=== PATIENT | female | born 1960 | race Caucasian/White ===

== ENCOUNTER 2024-08-15 10:21 | Emergency (ER) | payer OTHER, SELFPAY ==
[2024-08-15] VITALS (13 sets, daily range): BP systolic 114–143; BP diastolic 75–119; BMI 23.4
[2024-08-15] MEDS: ADENOCARD 6 MG IV (10:49)
[2024-08-15] MEDS: CARDIZEM 20 MG IV (10:57)
--- NOTE | 2024-08-15 10:59 | ED.GENMED ---
History of Present Illness
<LUCIA Peoples Jr. Last Filed: 08/15/24 15:26>
General
Chief Complaint: Heart Rate Problem
Source: patient and spouse
Exam Limitations: none
Time Seen by Provider: 08/15/24 10:45
Nursing documentation reviewed up to this point in time: agreed with
History of Present Illness
History of Present Illness:
63-year-old female presenting to the emergency department today with concerns of palpitations over the past 3 hours. 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
to the ER. Denies any specific chest pain no recent medication changes only takes lisinopril at baseline. No caffeine use drug or alcohol abuse
Review of Systems
<LUCIA Peoples Jr. Last Filed: 08/15/24 15:26>
Review of Systems
Allergies reviewed?: Yes
All Other Systems: ROS reviewed and negative except as documented in HPI and ROS
Phy Exam
<LUCIA Peoples Jr. Last Filed: 08/15/24 15:26>
Physical Exam
Physical Exam:
GENERAL: Alert , in no apparent distress
EYE: pupils equal and reactive
NECK: Supple, no significant adenopathy.
ENT: o/p clr, mmm.
CARDIAC: Tachycardic regular
LUNGS: Clear breath sounds bilaterally, no acute respiratory distress, no wheezes/rales/rhonchi
ABDOMEN: Soft, without focal tenderness, no r/g, no cvat
NEUROLOGICAL: Alert and oriented, no focal neuro deficits
SKIN: Warm and dry, skin intact.
MUSCULOSKELETAL: No edema, well perfused.
PSYCH: Normal and appropriate interaction.
Course
<Abel Daniel Jr., PA-C - Last Filed: 08/15/24 15:26>
Orders/Labs/Results
Orders:
Orders
08/15/24 10:22
Electrocardiogram (*1) Urgent
Reason for Study: Bradycardia / Tachycardia
EKG- Treatment ONCE
08/15/24 10:44
Adenosine [Adenocard] 12 mg .ROUTE .STK-MED ONE
08/15/24 10:48
Electrocardiogram (*1) Urgent
Reason for Study: Tachycardia
EKG- Treatment ONCE
08/15/24 10:50
Adenosine [Adenocard] 6 mg IV NOW STA
08/15/24 10:51
Adenosine [Adenocard] 6 mg .ROUTE .STK-MED ONE
08/15/24 10:55
Adenosine [Adenocard] 12 mg IV NOW STA
Diltiazem 125 mg/125 ml Nss [Cardizem] 125 mg in 125 ml .ROUTE .STK-MED
Diltiazem HCl [Cardizem] 50 mg .ROUTE .STK-MED ONE
08/15/24 11:01
TSH Reflex To Free T4 Urgent
08/15/24 11:05
Diltiazem Extended Release [Cardizem Cd] 120 mg PO NOW STA
08/15/24 11:10
Diltiazem HCl [Cardizem] 20 mg IV NOW STA
08/15/24 11:26
EKG [Electrocardiogram (*1)] Urgent
Reason for Study: Shortness of Breath
Chest [CR Chest - 2 Views ] Urgent
Comment:
Reason For Exam: sob
08/15/24 11:27
EKG- Treatment ONCE
08/15/24 11:33
Complete Blood Count/With Diff Urgent
D-Dimer Urgent
08/15/24 12:20
Diltiazem [Cardizem] 30 mg PO NOW STA
08/15/24 12:29
Echo 2D MMode Color/Doppler Routine
Reason for Study: rapid atach/SVT
08/15/24 13:12
Basic Metabolic Panel Urgent
08/15/24 15:13
EKG [Electrocardiogram (*1)] Urgent
Reason for Study: Fatigue / Weakness
EKG- Treatment ONCE
Abnormal Lab Results
08/15/24 08/15/24
11:33 13:12
MCH 32.1 H pg
(27.0-31.0)
MPV 10.9 H fL
(7.4-10.4)
Absolute Lymphs (auto) 0.9 L 10^3/uL
(1.2-3.4)
Neutrophils % 77.1 H %
(42.2-75.2)
Lymphocytes % 16.2 L %
(20.5-51.1)
Chloride 111 H mmol/L
(98-107)
08/15/24 11:33
08/15/24 13:12
Vital Signs
Initial and Last Documented VS:
Initial Vital Signs
Temp Pulse Resp BP Pulse Ox
98.8 F 202 30 143/99 100
08/15/24 10:23 08/15/24 10:23 08/15/24 10:23 08/15/24 10:23 08/15/24 10:23
Last Documented Vital Signs
Temp Pulse Resp BP Pulse Ox
98.8 F 60 26 120/75 97
08/15/24 10:23 08/15/24 15:00 08/15/24 10:57 08/15/24 15:00 08/15/24 15:00
<Suze Pickett DO - Last Filed: 08/15/24 13:01>
Orders/Labs/Results
Orders:
Orders
08/15/24 10:22
Electrocardiogram (*1) Urgent
Reason for Study: Bradycardia / Tachycardia
EKG- Treatment ONCE
08/15/24 10:44
Adenosine [Adenocard] 12 mg .ROUTE .STK-MED ONE
08/15/24 10:48
Electrocardiogram (*1) Urgent
Reason for Study: Tachycardia
EKG- Treatment ONCE
08/15/24 10:50
Adenosine [Adenocard] 6 mg IV NOW STA
08/15/24 10:51
Adenosine [Adenocard] 6 mg .ROUTE .STK-MED ONE
08/15/24 10:55
Adenosine [Adenocard] 12 mg IV NOW STA
Diltiazem 125 mg/125 ml Nss [Cardizem] 125 mg in 125 ml .ROUTE .STK-MED
Diltiazem HCl [Cardizem] 50 mg .ROUTE .STK-MED ONE
08/15/24 11:01
TSH Reflex To Free T4 Urgent
08/15/24 11:05
Diltiazem Extended Release [Cardizem Cd] 120 mg PO NOW STA
08/15/24 11:10
Diltiazem HCl [Cardizem] 20 mg IV NOW STA
08/15/24 11:26
EKG [Electrocardiogram (*1)] Urgent
Reason for Study: Shortness of Breath
Chest [CR Chest - 2 Views ] Urgent
Comment:
Reason For Exam: sob
08/15/24 11:27
EKG- Treatment ONCE
08/15/24 11:33
Complete Blood Count/With Diff Urgent
D-Dimer Urgent
08/15/24 12:20
Diltiazem [Cardizem] 30 mg PO NOW STA
08/15/24 12:29
Echo 2D MMode Color/Doppler Routine
Reason for Study: rapid atach/SVT
08/15/24 13:12
Basic Metabolic Panel Urgent
08/15/24 15:13
EKG [Electrocardiogram (*1)] Urgent
Reason for Study: Fatigue / Weakness
EKG- Treatment ONCE
Abnormal Lab Results
08/15/24 08/15/24
11:33 13:12
MCH 32.1 H pg
(27.0-31.0)
MPV 10.9 H fL
(7.4-10.4)
Absolute Lymphs (auto) 0.9 L 10^3/uL
(1.2-3.4)
Neutrophils % 77.1 H %
(42.2-75.2)
Lymphocytes % 16.2 L %
(20.5-51.1)
Chloride 111 H mmol/L
(98-107)
08/15/24 11:33
08/15/24 13:12
Vital Signs
Initial and Last Documented VS:
Initial Vital Signs
Temp Pulse Resp BP Pulse Ox
98.8 F 202 30 143/99 100
08/15/24 10:23 08/15/24 10:23 08/15/24 10:23 08/15/24 10:23 08/15/24 10:23
Last Documented Vital Signs
Temp Pulse Resp BP Pulse Ox
98.8 F 60 26 120/75 97
08/15/24 10:23 08/15/24 15:00 08/15/24 10:57 08/15/24 15:00 08/15/24 15:00
<Abel Daniel Jr., PA-C - Last Filed: 08/15/24 15:26>
MDM/Problems Addressed
MDM/Problems Addressed:
63-year-old female presenting to the emergency department today with concerns of elevated heart rate over the past few hours. On arrival heart rate of about 200 narrow complex regular. Modified Valsalva attempted without success x 2. Given
adenosine 6 mg then 12 mg without success. Patient then was given Cardizem with significant improvement from 200-100. There was concern that this could be atrial flutter. Case was discussed with cardiology that agreed with send recommended have
patient get echo here started on anticoagulation as well as rate control medication. Patient was started on oral diltiazem.
<Abel Daniel Jr., PA-C - Last Filed: 08/15/24 15:26>
*Critical Care Note
Total Time (30-74mins, 75-104mins- exclusive of procedures): Not Applicable
comment:
Critical care statement: A total of 40 minutes of critical care time was provided for this patient. This includes management of unstable vital signs, evaluation of the patient at bedside, reviewing the patient's pertinent medical records, discussion
with consultants, review of old EKGs and review of pertinent medical records. This time with separate from time utilized to perform the aforementioned documented procedures
ED Attending Note
<Abel Daniel Jr., PA-C - Last Filed: 08/15/24 15:26>
-
Portions of this chart may have been created with voice recognition software.� Occasional wrong word or��sound alike� substitutions may have occurred due to the inherent limitations of voice recognition software.
<Suze Pickett DO - Last Filed: 08/15/24 13:01>
ED Attending Note
Patient seen and examined by attending physician: Yes
I performed the substantive portion of visit, reviewed & personally made and approve the management plan that is documented in note by myself or LATHA.: Yes
I performed a history and physical exam of patient and discussed management with resident, I reviewed resident's note and agree with documented findings and plan of care.: Yes
ED Attending Note:
63-year-old female without significant past medical history presenting for palpitations. Patient reports symptoms for the past several hours. 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
to her primary care doctor. At primary care office, had an EKG that showed elevated heart rate in the 200s. Patient reports that she has been having ongoing palpitations for the past several months with multiple episodes per month, however usually
resolve on their own. She has never had to come to the hospital. Denies associated chest pain. Does note some mild dyspnea. Vital signs significant for tachycardia.
On exam, patient is resting comfortably, no acute distress. Heart rate on EKG is 202, appears consistent with SVT. Confirmed by EKG. Initial attempt at adenosine. No response with 6 mg, repeated at 12 mg, minimal response. Rhythm in between
dosages. Consistent with possible a flutter. Dose of diltiazem administered with subsequent slowing of heart rate. Heart rate now in the 90s to low 100s. However, concern for possible a flutter. Will administer oral dose of diltiazem, continue
to closely monitor, screening laboratory analysis and discuss with cardiology.
13:00 - In discussion with cardiology, do suspect a flutter. Do not suspect that patient is a candidate for cardioversion. She notes that she has been having the symptoms on and off several times a month for the past several months. Cardiology
recommending anticoagulation, diltiazem, and will perform echo in the ER with plan for outpatient cardiology follow-up
Discharge Plan
Departure
Patient Disposition: Home (Routine Discharge)
Date of Disposition: 08/15/24
Time of Disposition: 15:22
Patient with high blood pressure during this ER visit?: No
Condition: Good
Covid-19: Not Applicable
Discharge Problem:
Atrial fib/flutter, transient
Instructions: Atrial flutter
Prescriptions:
New
diltiazem HCl 180 mg capsule,extended release 24hr
180 mg PO DAILY 14 Days Qty: 14 0RF
Eliquis 5 mg tablet
5 mg PO BID 30 Days Qty: 60 0RF
Referrals:
Rusty Ewing DO [Family Provider] -
Neri Franco DO [Active] - 08/20/24 8:20 am (You have an appointment with cardiology/electrophysiology in the [facility] office. Please call with questions)
Activity Restrictions/Additional Instructions:
You came to the emergency department today with concerns of elevated heart rate. This is likely something called atrial flutter. Please guide medications to avoid any further complications. And follow-up with the mangle press catcher on 08/20/2024 at 8:20
AM. Return for any worsening, new or concerning symptoms
Interventions
Interventions:
*Risk Screen - Suicide Last Done: 08/15/24 10:23
*General Assessment Last Done: 08/15/24 10:23
*Neglect/Abuse Screening Last Done: 08/15/24 10:23
*ED- Fall Risk Assessment Last Done: 08/15/24 10:37
*ED COVID-19 Vaccine History Last Done: 08/15/24 10:23
ED- Cardiac Assessment Last Done: 08/15/24 10:37
ED- Pulmonary Assessment Last Done: 08/15/24 10:37
Discharge Date and Time
Print Language: SWAZI
[2024-08-15] MEDS: CARDIZEM CD 120 MG PO (11:12)
[2024-08-15 11:55] LABS: TSH Reflex To Free T4 1.24 uIU/ml (0.47-4.68)
[2024-08-15] MEDS: ADENOCARD 12 MG IV (12:14)
[2024-08-15] MEDS: CARDIZEM 30 MG PO (12:26)
[2024-08-15 12:40] LABS: % Basophils 0.5 % (0-2); % Eosinophils 0.5 % (0-6); % Immature Granulocytes 0.2 % (0-0.5); % Lymphocytes 16.2 % (20.5-51.1); % Monocytes 5.5 % (1.7-9.3); % Neutrophils 77.1 % (42.2-75.2); Absolute Lymphocytes 0.9 10^3/uL (1.2-3.4); Absolute Monocytes 0.3 10^3/uL (0.1-0.6); Absolute Neutrophils 4.4 10^3/uL (1.4-6.5); Hemoglobin 14.6 g/dL (12.0-16.0); Mean Corp Hgb Conc. 34.8 g/dL (33.0-37.0); Mean Corpuscular Hgb 32.1 pg (27.0-31.0); Mean Corpuscular Volume 92.3 fL (81.0-99.0); Mean Platelet Volume 10.9 fL (7.4-10.4); Nucleated Red Blood Cells % 0 %; Platelet Count 268 10^3/uL (130-400); Red Blood Cell Count 4.55 10^6/uL (4.20-5.40); Red Cell Dist. Width 14.2 % (11.5-14.5); White Blood Cell Count 5.7 10^3/uL (4.8-10.8)
[2024-08-15 14:05] LABS: Blood Urea Nitrogen 17 mg/dl (7-17); Calcium 9.7 mg/dl (8.4-10.2); Carbon Dioxide 25 mmol/L (22-30); Chloride 111 mmol/L (98-107); Estimated Creatinine Clearance 69 ml/min; Glucose 90 mg/dl (70-99); Sodium 144 mmol/L (135-145); eGFR > 60.00
== END 2024-08-15 15:39 | disposition home or self-care (01) ==
LOC: EMR 10:21
PROVIDERS: Physician Assistant; EMERGENCY PHYSICIAN Student in an Organized Health Care Education/Training Program; FAMILY PHYSICIAN Family Medicine
DX: I48.91 Unspecified atrial fibrillation (principal); I48.92 Unspecified atrial flutter
CPT/HCPCS: 99291; 96374; 96375; 96376; 71046; 80048; 84443; 85025; 85379; 93005; 93306; J0153

== ENCOUNTER 2024-09-06 08:05 | Emergency (ER) | payer OTHER, SELFPAY ==
[2024-09-06] VITALS (16 sets, daily range): BP systolic 99–132; BP diastolic 72–102; BMI 24.2
--- NOTE | 2024-09-06 08:10 | ED.GENMED ---
History of Present Illness
General
Chief Complaint: Heart Rate Problem
Time Seen by Provider: 09/06/24 08:10
History of Present Illness
History of Present Illness:
TIME OF INITIAL ENCOUNTER: 8:15 AM
HPI: The patient was to have a stress test today but this did not occur because she was found to be in rapid atrial flutter. See review of old records below. The patient has periodically been having palpitations at nighttime. He is compliant with
taking diltiazem and states she has not missed any doses of Eliquis since started.
EXAM:
GENERAL: Well appearing in no distress
HEENT: Moist oral mucosa
CARDIOVASCULAR: No murmurs, tachycardic heart rate, slightly irregular rhythm, No chest wall tenderness
PULMONARY: No respiratory distress, breath sounds are clear and equal
ABDOMEN: Soft with no peritoneal signs, no tenderness
NEUROLOGIC: Excellent strength all extremities, no coordination deficits
PSYCHIATRIC: Appropriate mental status, normal insight and judgement
EXTREMITIES: Nontender, no edema, moves all extremities equally
SKIN: No rash, no lesions
NUMBER AND COMPLEXITY OF PROBLEMS ADDRESSED AT THE ENCOUNTER
� Chronic conditions affecting care: High blood pressure
� Acute Exacerbation and/or Progression of Chronic Illness: This is an acute problem
� Differential Diagnosis includes: High blood pressure, atrial flutter
AMOUNT AND/OR COMPLEXITY OF DATA TO BE REVIEWED AND ANALYZED
� I performed an independent evaluation of and my interpretation is:
EKG: Atrial flutter rate of 146 ST abnormality likely rate related
CT:
X-rays:
Laboratory Studies: CBC and chemistries unremarkable, troponin less than 0.012
Other:
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 At that time she arrived with a heart rate of around 200 which was narrow complex and
they tried Valsalva maneuvers and then 6 mg and then 12 mg of adenosine without success. She then improved after Cardizem was started. She was placed on Eliquis and diltiazem and discharged.
� Clinical information was obtained by an independent historian: I spoke to at bedside
� Prescriptions/Medications Considered but not given:
� Further testing considered but not performed:
RISK OF COMPLICATIONS AND/OR MORBIDITY OR MORTALITY OF PATIENT MANAGEMENT
� Social determinants of health affecting care: Lives at home
� Discussion with other providers: I spoke to Dr. Phoenix who agrees with cardioversion after we give her morning dose of Eliquis.
� Escalation of care including admission/observation vs risk of discharge considered: The patient was initially given 5 mg of IV metoprolol. The patient did have procedural sedation with electrical cardioversion. I did have to
shock her twice. After the second attempt, she remained in sinus rhythm. Of note, with 60 mg of propofol, she did seem rather sedate and had somewhat of a prolonged recovery however otherwise was uneventful and did not require BVM ventilation.
ANY OTHER UPDATES:
Phy Exam
Physical Exam
Physical Exam:
See HPI
Course
Orders/Labs/Results
Orders:
Orders
09/06/24 08:08
EKG [Electrocardiogram (*1)] Urgent
Reason for Study: Atrial Flutter
09/06/24 08:09
EKG- Treatment ONCE
09/06/24 08:27
CMP [Comprehensive Metabolic Panel] Urgent
Complete Blood Count/With Diff Urgent
PT/INR [Prothrombin Time] Urgent
PTT Urgent
Troponin I Urgent
09/06/24 08:28
Metoprolol [Lopressor] 5 mg IV NOW STA
09/06/24 08:45
Apixaban [Eliquis] 5 mg PO NOW STA
09/06/24 08:54
Propofol [Diprivan] 20 ml .ROUTE .STK-MED
09/06/24 09:12
Electrocardiogram (*1) Urgent
Reason for Study: Palpitations
EKG- Treatment ONCE
Abnormal Lab Results
09/06/24
08:27
MCH 32.4 H pg
(27.0-31.0)
MPV 10.6 H fL
(7.4-10.4)
APTT 36.1 H Sec
(23.4-35.0)
09/06/24 08:27
09/06/24 08:27
Vital Signs
Initial and Last Documented VS:
Initial Vital Signs
Temp Pulse Resp BP Pulse Ox
37.1 C 136 18 125/89 99
09/06/24 08:07 09/06/24 08:07 09/06/24 08:07 09/06/24 08:07 09/06/24 08:07
Last Documented Vital Signs
Temp Pulse Resp BP Pulse Ox
36.6 C 51 15 114/91 95
09/06/24 09:32 09/06/24 09:30 09/06/24 09:30 09/06/24 09:30 09/06/24 09:30
Procedures
Cardioversion
Indication:: Afib
Performed by:: Dr. Annette Myers
Synchronized?: Yes
Energy Used: 200 joules
Number of attempts: Two
Successful?: Yes
Complications: None
ASA Risk Score: Class II
Any reaction or bad outcome to prior sedation/anesthesia?: No history of a reaction
Sedation level to be attained: moderate
Chart and allergies reviewed: Yes
Patient reassessed prior to sedation: Yes
Time out completed at (validating right patient & procedure): 09:00
History of difficult intubation: No
Airway free of obstruction: Yes
Patient has a gag reflex: Yes
Patient is able to open mouth: Yes
Patient has no dentures: Yes
Patient has no loose teeth: Yes
Medication administered by Provider during Moderate Sedation: IV Propofol (mg)
Total dose administered: 60
Time drug administered: 09:00
Start Time: 09:00
Stop Time: 09:15
*Critical Care Note
Total Time (30-74mins, 75-104mins- exclusive of procedures): Not Applicable
ED Attending Note
-
Portions of this chart may have been created with voice recognition software.� Occasional wrong word or��sound alike� substitutions may have occurred due to the inherent limitations of voice recognition software.
Discharge Plan
Departure
Patient Disposition: Home (Routine Discharge)
Date of Disposition: 09/06/24
Time of Disposition: :28
Patient with high blood pressure during this ER visit?: Yes
Discharge Problem:
Atrial flutter with rapid ventricular response
Instructions: Atrial flutter
Prescriptions:
No Action
diltiazem HCl 180 mg capsule,extended release 24hr
180 mg PO DAILY 14 Days Qty: 14 0RF
Eliquis 5 mg tablet
5 mg PO BID 30 Days Qty: 60 0RF
Referrals:
Rusty Ewing, [Family Provider] -
Rika Lin CRNP [Specified Professional Personl] - 09/17/24 1:20 pm (You have a follow up visit with Dr. Franco's DOG DAYCARE PROVIDER, Rika, at the [facility] office. Please call with questions. )
Activity Restrictions/Additional Instructions:
No driving or making important decisions today as you did have procedural sedation earlier today. Basic blood work is normal. I spoke to Dr. Phoenix, Dr. Mccormick's associate. He wants you to continue your current medication. Since your heart rate
is slow right now, I recommend taking not taking any more diltiazem today. You can resume tomorrow. Follow-up with them as an outpatient. Be sure to continue your Eliquis.
Interventions
Interventions:
*Risk Screen - Suicide Last Done: 09/06/24 08:22
*General Assessment Last Done: 09/06/24 08:22
*Neglect/Abuse Screening Last Done: 09/06/24 08:22
*ED- Fall Risk Assessment Last Done: 09/06/24 08:22
*ED COVID-19 Vaccine History Last Done: 09/06/24 08:22
ED- Cardiac Assessment Last Done: 09/06/24 08:22
ED- Pulmonary Assessment Last Done: 09/06/24 08:22
Discharge Date and Time
Print Language: TELUGU
[2024-09-06] MEDS: LOPRESSOR 5 MG IV (08:30)
[2024-09-06 08:46] LABS: % Eosinophils 1.7 % (0-6); % Immature Granulocytes 0.4 % (0-0.5); % Lymphocytes 23.3 % (20.5-51.1); % Monocytes 8.9 % (1.7-9.3); % Neutrophils 64.7 % (42.2-75.2); Absolute Basophils 0.1 10^3/uL (0-0.2); Absolute Eosinophils 0.1 10^3/uL (0-0.7); Absolute Lymphocytes 1.2 10^3/uL (1.2-3.4); Absolute Monocytes 0.5 10^3/uL (0.1-0.6); Absolute Neutrophils 3.3 10^3/uL (1.4-6.5); Hematocrit 42.5 % (37.0-47.0); Hemoglobin 14.6 g/dL (12.0-16.0); Mean Corp Hgb Conc. 34.4 g/dL (33.0-37.0); Mean Corpuscular Hgb 32.4 pg (27.0-31.0); Mean Corpuscular Volume 94.4 fL (81.0-99.0); Mean Platelet Volume 10.6 fL (7.4-10.4); Nucleated Red Blood Cells % 0 %; Platelet Count 274 10^3/uL (130-400); Red Cell Dist. Width 13.9 % (11.5-14.5); White Blood Cell Count 5.2 10^3/uL (4.8-10.8)
[2024-09-06 08:48] LABS: ALT (SGPT) 18 U/L (0-35); AST (SGOT) 20 U/L (14-36); Albumin 4.5 g/dl (3.5-5.0); Alkaline Phosphatase 89 U/L (38-126); Blood Urea Nitrogen 17 mg/dl (7-17); Calcium 10.1 mg/dl (8.4-10.2); Carbon Dioxide 27 mmol/L (22-30); Chloride 105 mmol/L (98-107); Estimated Creatinine Clearance 61 ml/min; Glucose 97 mg/dl (70-99); INR 1.09; PT 14.4 Sec (11.4-14.6); Potassium 4.5 mmol/L (3.5-5.1); Sodium 142 mmol/L (135-145); Total Bilirubin 0.7 mg/dl (0.2-1.3); Total Protein 7.4 g/dl (6.3-8.2); eGFR > 60.00
[2024-09-06 08:49] LABS: APTT 36.1 Sec (23.4-35.0)
[2024-09-06] MEDS: ELIQUIS 5 MG PO (08:49)
[2024-09-06 08:59] LABS: Troponin I < 0.012 ng/ml
== END 2024-09-06 09:44 | disposition home or self-care (01) ==
LOC: EMR 08:05
PROVIDERS: EMERGENCY PHYSICIAN Emergency Medicine; FAMILY PHYSICIAN Family Medicine
DX: I48.92 Unspecified atrial flutter (principal); R03.0 Elevated blood-pressure reading, without diagnosis of hypertension
CPT/HCPCS: 92960; 99285; 96374; 99152; 80053; 84484; 85025; 85610; 85730; 93005

== ENCOUNTER 2024-10-23 08:30 | Day surgery (SDC) | payer OTHER, SELFPAY ==
[2024-10-07 12:43] VITALS: BMI 23.2
[2024-10-07 13:06] LABS: % Basophils 0.8 % (0-2); % Eosinophils 0.3 % (0-6); % Immature Granulocytes 0.2 % (0-0.5); % Lymphocytes 19.7 % (20.5-51.1); % Monocytes 7.2 % (1.7-9.3); % Neutrophils 71.8 % (42.2-75.2); Absolute Basophils 0.1 10^3/uL (0-0.2); Absolute Lymphocytes 1.2 10^3/uL (1.2-3.4); Absolute Monocytes 0.5 10^3/uL (0.1-0.6); Absolute Neutrophils 4.5 10^3/uL (1.4-6.5); Hemoglobin 14.7 g/dL (12.0-16.0); Mean Corpuscular Volume 94.4 fL (81.0-99.0); Mean Platelet Volume 10.2 fL (7.4-10.4); Nucleated Red Blood Cells % 0 %; Platelet Count 296 10^3/uL (130-400); Red Blood Cell Count 4.45 10^6/uL (4.20-5.40); White Blood Cell Count 6.3 10^3/uL (4.8-10.8)
--- NOTE | 2024-10-07 13:07 | HPS.HSE ---
Family Physician
-
Family Physician: Rusty Ewing
Chief Complaint
-
Paroxysmal atrial fibrillation.
History of Present Illness
The patient is a 63 year old female presenting today for paroxysmal atrial fibrillation with underlying atrial flutter. The patient reports symptoms such as minor chest discomfort, exertional shortness of breath, palpitations,
lightheadedness, and dizziness all likely secondary to her atrial arrhythmias. She previously underwent a cardioversion on September 06, 2024 for this diagnosis. Her most recent 2 week CAM monitor demonstrated a 12.8% atrial flutter burden with episodes
of one-to-one conduction and heart rates greater than 200 beats per minute. Also seen on monitoring was a 2.4% atrial fibrillation burden and 45 episodes of atrial tachycardia. She is on current pharmacological therapy with Diltiazem. She does
report compliance with Eliquis for oral anticoagulation due to a CHADS-VASc of 3. She notes that her symptoms associated with her arrhythmias greatly interfere with her activities of daily living and overall impact her quality of life. She is
interested in pursuing pulmonary vein isolation for more definitive arrhythmia management. She denies any current complaints today such as chest pain and shortness of breath at rest, nausea, vomiting, diarrhea, cough, sore throat, or fever.
Medical History
Past Medical History
Past Medical History: Reports Other
Additional Past Medical History:
1. Paroxysmal atrial fibrillation and atrial flutter, status post cardioversion 08/2024; pharmacological therapy with Diltiazem and oral anticoagulation with Eliquis.
2. Supraventricular tachycardia.
3. Hypertension.
4. Mild mitral regurgitation.
5. Mild tricuspid regurgitation.
6. Venous varicosities, status post ablation.
7. Remote GI ulcer with bleed.
8. Questionable diverticulitis history.
9. Nephrolithiasis.
10. Remote migraines.
11. Degenerative disc disease.
13. Osteopenia.
Past Surgical History: Reports Other
Additional Past Surgical History:
1. Cardioversion.
2. Bilateral varicose vein ablation.
Social History
Tobacco: Non-smoker
Alcohol: None
Personal:
Living: Other (She lives in a 2 story home with a basement with her . )
Family History
Family History: Not pertinent
Allergies / Home Medications
Allergy/Medication List:
Home medications:
1. Apixaban 5 mg p.o. twice a day.
2. Calcium 1 tablet p.o. daily.
3. Diltiazem 120 mg p.o. twice a day.
4. Lisinopril 5 mg p.o. daily.
Allergies: No known allergies.
Review of Systems
-
A 12 point ROS was completed and negative except as noted: Yes
Physical Exam
Vital Signs
Blood pressure 138/78. Heart rate 54. Respirations 18. Pulse ox 99% on room air.
Height 5 feet, 4 inches. Weight 61.3 kg. BMI 23.2.
Physical Exam
General: Well Developed, Well Nourished and No Apparent Distress
HEENT: NormoCephalic, Moist mucous membranes, Atraumatic and PERRLA
Respiratory: Clear
Cardiac: Regular Rhythm
GI: Soft, Non Tender and Non Distended
Musculoskeletal: No Edema and Normal Gait & Station
Skin: Warm and Dry
Neuro: AO x 3 and Nonfocal/grossly intact
Laboratory Results
-
10/07/24 12:53
DIAGNOSTIC STUDIES as of 10/07/2024: PT 16.4. INR 1.29. Sodium 141. Potassium 4.1. BUN 19. Creatinine 0.8. Glucose 103. Calcium 10.1. Magnesium 2.3. AST 17. ALT 16. Albumin 5.1. Type and screen A negative.
EKG 10/07/2024: Sinus bradycardia. Possible left atrial enlargement.
Chest CT 10/07/2024: Short segment common vestibule for the left superior and inferior pulmonary veins, fairly commonly seen and considered normal variant. No evidence for left atrial thrombus.
Echocardiogram 08/15/2024: Left ventricle is small in size. Left ventricular ejection fraction is 55-60% by visual assessment. Normal regional wall motion. Normal left ventricular wall thickness. Mild mitral regurgitation. Structurally normal aortic
valve without significant stenosis or regurgitation. Mild tricuspid regurgitation. Estimated pulmonary artery pressure of 20-25 mmHg, assuming a right atrial pressure of 3 mmHg. Structurally normal pulmonic valve. The IVC is of normal size and
demonstrates normal respiratory variation.
Impression/Plan
-
IMPRESSION/PLAN:
1. Paroxysmal atrial fibrillation: The patient is in need of pulmonary vein isolation with Dr. Neri Franco on 10/23/2024. The benefits and risks of the procedure have been explained to the patient. The patient understands these risks and wishes to
proceed. She will not be required to undergo a pre-procedural transesophageal echocardiogram as she has been compliant with her home oral anticoagulation. She is aware to continue her Eliquis up until the night prior to her procedure. She will take
no medications the morning of her ablation.
[2024-10-07 13:18] LABS: INR 1.29; PT 16.4 Sec (11.4-14.6)
[2024-10-07 13:25] LABS: ALT (SGPT) 16 U/L (0-35); AST (SGOT) 17 U/L (14-36); Albumin 5.1 g/dl (3.5-5.0); Alkaline Phosphatase 81 U/L (38-126); Blood Urea Nitrogen 19 mg/dl (7-17); Calcium 10.1 mg/dl (8.4-10.2); Carbon Dioxide 30 mmol/L (22-30); Chloride 106 mmol/L (98-107); Estimated Creatinine Clearance 61 ml/min; Glucose 103 mg/dl (70-99); Magnesium 2.3 mg/dl (1.6-2.3); Potassium 4.1 mmol/L (3.5-5.1); Sodium 141 mmol/L (135-145); Total Bilirubin 0.8 mg/dl (0.2-1.3); Total Protein 8.1 g/dl (6.3-8.2); eGFR > 60.00
[2024-10-23] VITALS (11 sets, daily range): BP systolic 118–147; BP diastolic 59–87; BMI 23.2
--- NOTE | 2024-10-23 11:29 | ITS.CL.ABL ---
Slip Laster - Ablation
Ablation
Procedure Report:
Primary Care: Dr Rusty Ewing
Procedure Date: 10/23/2024
Patient History:
Patient is a pleasant 63-year-old female with a history of hypertension, paroxysmal atrial fibrillation and paroxysmal atrial flutter.
See H&P for complete details.
Indication:
Symptomatic paroxysmal atrial arrhythmias
Symptomatic paroxysmal atrial fibrillation
Arrhythmia Specific History:
Prior Medical Therapies for Rate and Rhythm Control:
[ ] Beta-sun
X Calcium channel-sun
[ ] Amiodarone
[ ] Dronederone
[ ] Sotalol
[ ] Flecainide
[ ] Dofetilide
[ ] Options limited by bradycardia
[ ] Options limited by comorbid renal disease
Prior Procedural Therapies for AF/AFL:
[ ] Cardioversion
[ ] Pulmonary Vein Isolation
[ ] Posterior Wall Isolation
[ ] Additional lines (Specify)
[ ] Surgical Crum-MAZE or PVI (Specify)
Procedure Performed:
X AF ablation procedure (00572) -- includes LA/CS pacing, trans-septal, 3D mapping, + ICE
[ ] +IV drug (00381)
[ ] +Other Arrhythmia (71535)
X +Other AF Line/ablation (41808) - floor, roof lines; posterior wall isolation
Risks and expected recovery has been explained in detail. Alternative options have been explored, and in a shared-decision making fashion we have decided that this was the most appropriate procedure.
Method
NPO status confirmed. Grounding pad applied. Defibrillator pads applied. Continuous surface ECG, pulse oximetry, and blood pressure were monitored. Procedure was performed under general anesthesia, with anesthesia services.
Both groins were clipped, prepped with Chloraprep, and draped in sterile fashion. Time out was called. Local anesthesia administered with bupivacaine. The right femoral vein was accessed for catheter placement, using ultrasound guidance (images
saved to record), micro-puncture needle/wire, and modified seldinger technique. 3 sheaths were placed. The following catheters were used:
[ ] Tacticath SE (D/F Curve) ablation catheter
X Viewflex 9Fr ICE catheter
X Inquiry decapolar 6Fr diagnostic catheter
[ ] CRD Hex 6Fr
[ ] Arctic Front Advance Cryoballoon ([ ]28mm[ ]23mm)
[ ] Achieve Advance mapping catheter ([ ]15mm[ ]20mm)
X FlexCath Contour 10 Fr with PulseSelect PFA Catheter
X Advisor HD Grid Mapping Catheter, SE
[ ] Acuson AcuNav 8 Fr ICE catheter
[ ]Other: [ ]
Intracardiac ultrasound (ICE) was carefully advanced into the right atrium to guide sheath placement over a J-wire, catheter placement, guide trans-septal puncture, identify potential complications, identify anatomic structures and ensure proper
contact between ablation catheter and tissue. A large atrial septal aneurysm was identified by intracardiac ultrasound as previously noted by transthoracic echocardiogram and CT scan.
Heparin was given prior to trans-septal puncture. Heparin was given to achieve and maintain a target ACT of 300-400 seconds throughout the procedure.
Trans-septal access was performed under ICE guidance. The trans-septal puncture was performed with a SafeSept wire through a Brockenbrough needle assembly through the steerable sheath. The wire was visualized as it entered the LSPV and system
advanced under ICE guidance and fluoroscopy into the LA. The Brockenbrough needle assembly, SafeSept wire and sheath dilator were removed under negative pressure. LA pressure was measured and recorded.
ICE and 3D mapping was performed to identify relevant cardiac structures. A careful 3D map was created to assess for regions of low-voltage and abnormal electrogram signals using HD grid mapping catheter and PulseSelect catheter. Additional mapping
was performed as outlined below.
Prior to ablation, glycopyrrolate was provided. PulseSelect catheter was advanced over J-wire to the ostium of each vein. Pulmonary vein isolation was performed with ostial and antral lesions in a circumferential manner. Contact was visualized via
EAM, ICE, fluoroscopy, and EGM signals. Posterior wall isolation was performed by anchoring the J-wire within the pulmonary vein and placing the PulseSelect catheter in contact with the posterior wall as visualized by aforementioned methods. Floor
and roof lines using pulsed field ablation were performed. Following completion of ablation lesions, a post-ablation voltage/activation map was performed in sinus rhythm. Entrance and exit block were confirmed for each vein and the posterior wall.
Catheter and sheath were removed from the left atrium and post-ablation intracardiac echo evaluation was consistent with pre-ablation with no changes and no pericardial effusion and there is no left atrial thrombus or left ventricle thrombus seen.
Electrophysiology study was performed. No sustained arrhythmia was induced. Hemostasis was obtained with figure of 8 stitch for each groin and with manual pressure. Protamine was used for reversal.
Estimated Blood Loss
5 mL
Complications
None
Fluoroscopy: 3.2 minutes; 4.43 mGy; DAP 0.580
LA Pressure: Pre 6 mmHg, post 3 mmHg
Baseline Intervals:
Rhythm: SR
NV: 93 ms
QRS: 103 ms
QT: 473 ms
QTc: 436 ms
A-A: 1175 ms
R-R: 1175 ms
Post-Procedure Intervals:
NV: 117 ms
QRS: 82 ms
QT: 401 ms
QTc: 472 ms
A-A: 722 ms
R-R: 722 ms
AVWB: 270 ms
AERP: 600/210 ms
Recommendations
- Bedrest with straight-leg precautions as ordered
- Anticipate same day discharge if patient meeting clinical metrics
- Resume home medications as indicated
- Ok to resume anticoagulation tonight if patient and groin sites stable
- PPI daily for 30 days
- Plan for follow-up in office as scheduled
Neri Franco DO, FACC, [facility]
Clinical Cardiac Political Reporter
cc: Dr Rusty Ewing
[2024-10-23 12:09] LABS: ACT-LR - POC 229 Seconds (116-155)
[2024-10-23 12:26] LABS: ACT-LR - POC 294 Seconds (116-155)
[2024-10-23 12:41] LABS: ACT-LR - POC 355 Seconds (116-155)
[2024-10-23 12:59] LABS: ACT-LR - POC 374 Seconds (116-155)
[2024-10-23 13:24] LABS: ACT-LR - POC 190 Seconds (116-155)
[2024-10-23 14:14] LABS: ACT-LR - POC > 397 Seconds (116-155)
== END 2024-10-23 18:27 | disposition home or self-care (01) ==
LOC: CATH 08:30
PROVIDERS: ATTENDING PHYSICIAN Internal Medicine Cardiovascular Disease; FAMILY PHYSICIAN Family Medicine
DX: I48.0 Paroxysmal atrial fibrillation (principal); I48.92 Unspecified atrial flutter; I47.10 Supraventricular tachycardia, unspecified; I10 Essential (primary) hypertension; I08.1 Rheumatic disorders of both mitral and tricuspid valves; I83.90 Asymptomatic varicose veins of unspecified lower extremity; N20.0 Calculus of kidney; M85.80 Other specified disorders of bone density and structure, unspecified site; Z79.899 Other long term (current) drug therapy; Z79.01 Long term (current) use of anticoagulants; I47.19 Other supraventricular tachycardia
CPT/HCPCS: C1732; C1894; C1769; C1733; 36415; 75572; 80053; 83735; 85025; 85347; 85610; 86850; 86900; 86901; 93005; 93656; 93657; C1766; Q9967

== ENCOUNTER 2024-12-13 09:02 | Day surgery (SDC) | payer OTHER, SELFPAY ==
--- NOTE | 2024-12-13 12:20 | ITS.CL.CARDI ---
Street Roller Engineer - Cardioversion
Cardioversion
Procedure Report:
Procedure: GIANLUCA-guided electrical cardioversion
Pre-operative diagnosis: Persistent atrial flutter
Post-operative diagnosis: Persistent atrial flutter status post DC cardioversion to sinus rhythm
Anesthesia: MAC
Attending Physician: Washington Gates MD
Procedure Description: The patient was brought to the electrophysiology laboratory in the fasting state. Informed consent was obtained from the patient prior to the start of the procedure. Adherence to anticoagulation was confirmed. Electrodes were
placed on the patient and connected to an external defibrillator. Monitoring of blood pressure, ECG tracings, and pulse oximetry was initiated. The pads were applied to the patient in the anterior and posterior positions. The patient was sedated by
the anesthesiologist. A GIANLUCA (reported separately) was performed prior to the cardioversion. No left atrial or left atrial appendage thrombus was seen. After the GIANLUCA probe was removed, a 200 joule biphasic synchronized shock was delivered to the
patient under MAC anesthesia. Sinus rhythm was successfully restored. The patient recovered uneventfully from MAC anesthesia. There were no immediate post-procedure complications. The patient left the lab in good condition. The attending physician
was present throughout the entire procedure.
Impression: Successful GIANLUCA-guided direct current cardioversion with adventist of sinus rhythm after one 200 joule biphasic synchronized shock.
== END 2024-12-13 11:28 | disposition home or self-care (01) ==
LOC: CATH 09:02
PROVIDERS: ATTENDING PHYSICIAN Internal Medicine Cardiovascular Disease; FAMILY PHYSICIAN Family Medicine; OTHER PHYSICIAN Internal Medicine Cardiovascular Disease
DX: I48.0 Paroxysmal atrial fibrillation (principal); I48.92 Unspecified atrial flutter; R07.89 Other chest pain; R06.02 Shortness of breath; I08.1 Rheumatic disorders of both mitral and tricuspid valves; I10 Essential (primary) hypertension; I47.10 Supraventricular tachycardia, unspecified; Z79.01 Long term (current) use of anticoagulants
CPT/HCPCS: 93312; 93320; 93325; 92960; 93005

== ENCOUNTER → 2024-12-24 12:55 | Outpatient (REF) | payer OTHER, SELFPAY | LOC: HWRCS 12:55 | PROVIDERS: ATTENDING PHYSICIAN Physician Assistant Medical; FAMILY PHYSICIAN Family Medicine | DX: I47.10 Supraventricular tachycardia, unspecified (principal); R00.0 Tachycardia, unspecified; R06.02 Shortness of breath | CPT/HCPCS: 93308 ==

== ENCOUNTER → 2025-01-23 06:57 | Outpatient (REF) | payer MEDICARE, OTHER, SELFPAY | LOC: RAD 06:57 | PROVIDERS: ATTENDING PHYSICIAN Internal Medicine Cardiovascular Disease; FAMILY PHYSICIAN Family Medicine | DX: R52 Pain, unspecified (principal); R60.1 Generalized edema | CPT/HCPCS: 93926 ==

== ENCOUNTER → 2025-03-10 09:35 | Outpatient (REF) | payer MEDICARE, OTHER, SELFPAY ==
[2025-03-10 10:39] LABS: Hematocrit 41.4 % (37.0-47.0); Hemoglobin 14.1 g/dL (12.0-16.0); Mean Corp Hgb Conc. 34.1 g/dL (33.0-37.0); Mean Corpuscular Volume 95.6 fL (81.0-99.0); Nucleated Red Blood Cells % 0 %; Platelet Count 277 10^3/uL (130-400); Red Cell Dist. Width 14.2 % (11.5-14.5)
[2025-03-10 10:55] LABS: INR 1.31; PT 16.6 Sec (11.4-14.6)
[2025-03-10 11:51] LABS: ALT (SGPT) 27 U/L (0-35); AST (SGOT) 24 U/L (14-36); Albumin 4.5 g/dl (3.5-5.0); Alkaline Phosphatase 110 U/L (38-126); Blood Urea Nitrogen 18 mg/dl (7-17); Calcium 9.6 mg/dl (8.4-10.2); Carbon Dioxide 28 mmol/L (22-30); Chloride 106 mmol/L (98-107); Glucose 98 mg/dl (70-99); Magnesium 2.1 mg/dl (1.6-2.3); Potassium 4.3 mmol/L (3.5-5.1); Sodium 142 mmol/L (135-145); Total Protein 7.4 g/dl (6.3-8.2); eGFR > 60.00
== END ==
LOC: SDSPAT 09:35
PROVIDERS: ATTENDING PHYSICIAN Internal Medicine Cardiovascular Disease; FAMILY PHYSICIAN Family Medicine
DX: I48.91 Unspecified atrial fibrillation (principal)
CPT/HCPCS: 36415; 80053; 83735; 85025; 85610; 86850; 86900; 86901; 93005

== ENCOUNTER → 2025-03-14 09:13 | Outpatient (REF) | payer MEDICARE, OTHER, SELFPAY | LOC: DHVS 09:13 | PROVIDERS: ATTENDING PHYSICIAN Internal Medicine Cardiovascular Disease; FAMILY PHYSICIAN Family Medicine | DX: L02.214 Cutaneous abscess of groin (principal) | CPT/HCPCS: 93926 ==

== ENCOUNTER 2025-03-20 06:49 | Day surgery (SDC) | payer MEDICARE, OTHER, SELFPAY ==
[2025-03-20 07:38] VITALS: BMI 21.5
--- NOTE | 2025-03-21 13:05 | ITS.CL.PN ---
Flight Communications Officer - Procedure Note
Procedure
Procedure Note:
Date of Procedure: 03/20/25
Procedure: GIANLUCA
Indication: Symptomatic atrial fibrillation
Performing Physician: Rosy Valera MD
Technique: The patient was brought to the holding area. Signed informed consent was obtained. A time out was called and performed. The patient was anesthetized by the anesthesia service. GIANLUCA probe was inserted without difficulty. Images were
obtained. There were no complications.
Conclusion: GIANLUCA per protocol.
Recommendation: Routine post GIANLUCA care.
== END 2025-03-20 09:00 | disposition home or self-care (01) ==
LOC: CATH 06:49
PROVIDERS: ATTENDING PHYSICIAN Internal Medicine Cardiovascular Disease; FAMILY PHYSICIAN Family Medicine; OTHER PHYSICIAN Internal Medicine Cardiovascular Disease
DX: I48.0 Paroxysmal atrial fibrillation (principal); I08.1 Rheumatic disorders of both mitral and tricuspid valves; I48.92 Unspecified atrial flutter; I47.19 Other supraventricular tachycardia; Z79.01 Long term (current) use of anticoagulants; I10 Essential (primary) hypertension; I87.2 Venous insufficiency (chronic) (peripheral); Z87.11 Personal history of peptic ulcer disease; M85.80 Other specified disorders of bone density and structure, unspecified site; Z86.718 Personal history of other venous thrombosis and embolism; I08.8 Other rheumatic multiple valve diseases
CPT/HCPCS: 93312; 93320; 93325

== ENCOUNTER 2025-03-21 08:38 | Day surgery (SDC) | payer MEDICARE, OTHER, SELFPAY ==
[2025-03-10 10:04] VITALS: BMI 22.5
[2025-03-21] VITALS (12 sets, daily range): BP systolic 89–131; BP diastolic 57–103; BMI 23.2
[2025-03-21 14:12] LABS: ACT-LR - POC 253 Seconds (116-155)
[2025-03-21 14:40] LABS: ACT-LR - POC 308 Seconds (116-155)
[2025-03-21 15:28] LABS: ACT-LR - POC 149 Seconds (116-155)
--- NOTE | 2025-03-21 16:23 | ITS.CL.ABL ---
Electronics Engineer - Ablation
Ablation
Procedure Report:
Primary Care: Dr Rusty Ewing
Procedure Date: 03/21/2025
Patient History:
Patient is a pleasant 64-year-old female with a past medical history significant for hypertension, atrial fibrillation, atrial flutter.
See H&P for complete details.
Indication:
Symptomatic paroxysmal atrial fibrillation
Symptomatic persistent atrial flutter
Arrhythmia Specific History:
Prior Medical Therapies for Rate and Rhythm Control:
[ ] Beta-sun
X Calcium channel-sun
[ ] Amiodarone
[ ] Dronederone
[ ] Sotalol
[ ] Flecainide
[ ] Dofetilide
[ ] Options limited by bradycardia
[ ] Options limited by comorbid renal disease
Prior Procedural Therapies for AF/AFL:
[ ] Cardioversion
X Pulmonary Vein Isolation - 10/23/2024 (MDT PulseSelect)
X Posterior Wall Isolation - 10/23/2024 (MDT PulseSelect)
[ ] Additional lines (Specify)
[ ] Surgical Crum-MAZE or PVI (Specify)
Procedure Performed:
X AF ablation procedure (46804) -- includes LA/CS pacing, trans-septal, 3D mapping, + ICE
[ ] +IV drug (44761)
X +Other Arrhythmia (62457) -- typical right atrial flutter, CTI ablation
X +Other AF Line/ablation (55514) -- Floor line
Risks and expected recovery has been explained in detail. Alternative options have been explored, and in a shared-decision making fashion we have decided that this was the most appropriate procedure.
Method
NPO status confirmed. Grounding pad applied. Defibrillator pads applied. Continuous surface ECG, pulse oximetry, and blood pressure were monitored. Procedure was performed under general anesthesia, with anesthesia services.
Both groins were clipped, prepped with Chloraprep, and draped in sterile fashion. Time out was called. Local anesthesia administered with bupivacaine. The right and left femoral vein were accessed for catheter placement, using ultrasound guidance
(images saved to record), micro-puncture needle/wire, and modified seldinger technique. 3 sheaths were placed. The following catheters were used:
[ ] Tacticath SE (D/F Curve) ablation catheter
X Viewflex 9Fr ICE catheter
X Inquiry decapolar 6Fr diagnostic catheter
[ ] CRD Hex 6Fr
X Agilis 11.5 Fr Steerable Sheath
X Sphere-9 Ablation catheter
[ ] Advisor HD Grid Mapping Catheter, SE
[ ] Acuson AcuNav 8 Fr ICE catheter
[ ] Other: [ ]
A multipolar catheter were advanced to the coronary sinus. Intracardiac ultrasound (ICE) was carefully advanced into the right atrium to guide sheath placement over a J-wire, catheter placement, guide trans-septal puncture, identify potential
complications, identify anatomic structures and ensure proper contact between ablation catheter and tissue.
Heparin was given to achieve and maintain a target ACT of 300-400 seconds throughout the procedure.
The Sphere-9 mapping/ablation catheter (through long steerable sheath was used to map, record, pace, and ablate.) Prior to ablation, glycopyrrolate was provided. Three-dimensional electroanatomic mapping was utilized with careful attention to
anatomic landmarks, including the coronary sinus, IVC-RA and SVC-RA junction, tricuspid valve annulus, and region of the His bundle electrogram. Tachycardia was characterized by activation patterns in the CS catheters and the surface ECG.
Entrainment maneuvers established cavotricuspid isthmus-dependence however with pacing, activation pattern changed to an eccentric pattern and the CTI was no longer in the circuit. An ablation line was created from the tricuspid annulus to the IVC
in the 6:00 position (GUATEMALAN clock/caudal EAM projection). A combination of RF and PF was used with careful monitoring of impedance, AV conduction, power, and temperature. Ablation continued until a line was complete from the tricuspid valve annulus to
the IVC-RA junction. Patient's atrial arrhythmia during ablation to transition from flutter to atrial fibrillation. Following completion of the CTI ablation line, a 200 J synchronized direct-current cardioversion was performed with church of
sinus rhythm.
Next, we turned our attention to the AF Ablation.
Trans-septal access was performed under ICE guidance. The trans-septal puncture was performed with a SafeSept wire through a Brockenbrough needle assembly through the steerable sheath. The wire was visualized as it entered the LSPV and system
advanced under ICE guidance and fluoroscopy into the LA. The Brockenbrough needle assembly, SafeSept wire and sheath dilator were removed under negative pressure. LA pressure was measured and recorded.
ICE and 3D mapping was performed to identify relevant cardiac structures. A careful 3D map was created to assess for regions of low-voltage and abnormal electrogram signals using Sphere-9 catheter. Additional mapping was performed as outlined below.
Sphere 9 catheter was advanced into the left atrium. Electroanatomic mapping was performed using the Sphere 9 catheter. Reconnection was noted at the left superior and left inferior pulmonary veins along the ridge veins from atrium and
appendage. Pulmonary vein isolation was performed using pulsed field ablation in a circumferential manner. Contact was visualized via EAM, ICE, fluoroscopy, and EGM signals.
After accomplishing pulmonary venous isolation, mapping identified additional areas likely to be extra PV contributors to atrial fibrillation. These areas demonstrated patchy low voltage as well as complex fractionated electrograms. These areas can
be sites for the formation of rotors which can drive and maintain atrial fibrillation. These areas are known to be significant contributors to initiation and perpetuation of atrial fibrillation.
Additional energy applications/additional ablation sets targeted extra PV contributors to atrial fibrillation.
Targets for additional PFA ablation included: LA posterior wall targeted with pulsed electric field energy isolating the posterior wall of the left atrium. Posterior wall isolation was performed by aforementioned methods using Sphere-9 catheter.
The floor line was noted to have reconnection allowing energy to travel into the posterior wall. Therefore, inferior left atrium was targeted with pulsed field ablation as well as a ridge of tissue as below.
After ablation of the posterior wall, targets remained including:
- Inferior LA floor
- The ridge of tissue between the left atrial appendage and the left sided pulmonary veins (Ligament of Yosvany)
These areas were ablated using pulsed electric field energy eliminating the extra PV contributors to atrial fibrillation.
Following completion of ablation lesions, a post-ablation voltage/activation map was performed in sinus rhythm. Entrance and exit block were confirmed for each vein and the posterior wall.
Catheter and sheath were removed from the left atrium and post-ablation intracardiac echo evaluation was consistent with pre-ablation with no changes and no pericardial effusion and there is no left atrial thrombus or left ventricle thrombus seen.
Electrophysiology study was performed. No atrial arrhythmias were induced with programmed stimulation. Hemostasis was obtained with Vascade for each sheath and with manual pressure. Protamine was used for reversal.
Estimated Blood Loss
5 mL
Complications
None
Fluoroscopy: 6.0 minutes; 12.49 mGy; DAP 1.58
LA Pressure: Pre 6 mmHg, post 6 mmHg
Baseline Intervals:
Rhythm: Atrial Flutter; TCL 230 ms, concentric activation
QRS: 93 ms
QT: 289 ms
QTc: 413 ms
Post-Procedure Intervals:
WY: 134 ms
QRS: 90 ms
QT: 360 ms
QTc: 450 ms
AVWB: 290 ms
AVNERP/AERP: 600/230 ms
Recommendations
- Bedrest with straight-leg precautions as ordered
- Anticipate same day discharge if patient meeting clinical metrics
- Resume home medications as indicated
- Ok to resume anticoagulation tonight if patient and groin sites stable
- Plan for follow-up in office as scheduled
Neri Franco, , FACC, [facility]
Clinical Cardiac Cable Maker
cc: Dr Rusty Ewing
[2025-03-24 07:49] LABS: ACT-LR - POC > 397 Seconds (116-155)
[2025-03-24 07:49] LABS: ACT-LR - POC > 397 Seconds (116-155)
== END 2025-03-21 18:30 | disposition home or self-care (01) ==
LOC: CATH 08:38
PROVIDERS: ATTENDING PHYSICIAN Internal Medicine Cardiovascular Disease; FAMILY PHYSICIAN Family Medicine
DX: I48.0 Paroxysmal atrial fibrillation (principal); I48.92 Unspecified atrial flutter; I11.9 Hypertensive heart disease without heart failure; I87.2 Venous insufficiency (chronic) (peripheral); I47.19 Other supraventricular tachycardia; Z86.718 Personal history of other venous thrombosis and embolism; Z87.11 Personal history of peptic ulcer disease; M85.80 Other specified disorders of bone density and structure, unspecified site
CPT/HCPCS: C1733; C1894; C1730; C1769; C1766; 85347; 93005; 93655; 93656; 93657; C1760